=== PATIENT | female | born 1950 | race Caucasian/White ===

== ENCOUNTER 2020-03-28 13:35 | Outpatient (CLI) | payer MEDICARE, OTHER, SELFPAY ==
--- NOTE | 2020-03-28 13:52 | ECHO_ITS ---
Patient Info Name: Mariana Mathew Age: 69 years : 1950 Gender: Female Ht: 64 in Wt: 232 lbs BSA: 2.23 m2 HR: 71 bpm BP: 143 / 70 mmHg Technical Quality: Good Exam Date: 03/28/2020 2:10 PM Exam Location: [facility] Patient Status: Outpatient Admit Date: 03/28/2020 Staff Ordering Physician: Brandyn Peralta DO Data Keyer: Patricia Olivares RDCS Attending Provider: Brandyn Peralta DO Referring Physician: Kathryn HURD; Exam Type: CA echo doppler color flow Study Info Indications - murmur Complete two-dimensional, color flow and Doppler transthoracic echocardiogram is performed. Summary 1. Left ventricular chamber dimension is normal. 2. Left ventricular systolic function is normal, estimated at 60-65%. 3. The left ventricular diastolic function is grade I diastolic dysfunction. 4. E/e' 9 is minimally elevated. 5. Left atrial chamber dimension is mildly enlarged. 6. There is mild aortic valve sclerosis. 7. No pulmonary hypertension, estimated pulmonary arterial systolic pressure is 29 mmHg. Left Ventricle E/e' 9 is minimally elevated. Left ventricular chamber dimension is normal. Left ventricular systolic function is normal, estimated at 60-65%. The left ventricular diastolic function is grade I diastolic dysfunction. Right Ventricle Right ventricular chamber dimension is normal. Right ventricular systolic function is normal. Left Atria Left atrial chamber dimension is mildly enlarged. Right Atria Right atrial chamber dimension is normal. Aortic Valve The aortic valve is trileaflet. There is mild aortic valve sclerosis. There is no aortic valve stenosis. There is no aortic valve regurgitation. Pulmonic Valve There is no pulmonic regurgitation. Mitral Valve There is no mitral valve stenosis. There is no mitral valve regurgitation. Tricuspid Valve There is no tricuspid valve regurgitation. No pulmonary hypertension, estimated pulmonary arterial systolic pressure is 29 mmHg. Pericardium/Pleural There is no pericardial effusion. Inferior Vena Cava Normal inferior vena cava with >50% collapse upon inspiration consistent with normal right atrial pressure, 5 mmHg. Aorta The aortic root size at the sinus of Valsalva is normal. Left Ventricular Outflow Tract Name Value Normal LVOT 2D LVOT Diameter 2.0 cm LVOT Doppler LVOT Peak Gradient 5 mmHg LVOT Mean Gradient 3 mmHg LVOT VTI 25 cm LVOT VTI/AV VTI Ratio 0.8 LVOT Stroke Volume 78 ml LVOT CO 15.0 l/min LVOT CI 6.7 l/min/m2 Pulmonic Valve Name Value Normal PV Doppler PV Peak Gradient 4 mmHg Mitral Valve
== END 2020-03-28 13:36 | disposition home or self-care (01) ==
LOC: ANHCARD 13:37
PROVIDERS: PCP Internal Medicine; Visit Provider Internal Medicine
DX: R01.1 Cardiac murmur, unspecified (principal)
CPT/HCPCS: 93306

== ENCOUNTER 2021-02-12 10:30 | Outpatient (CLI) | payer MEDICARE, OTHER, SELFPAY ==
--- NOTE | ~2021-02-12 | XR_ITS ---
EXAMINATION: XR thoracic spine 2V DATE: 02/12/2021 10:57 INDICATION: Back pain TECHNIQUE: Two views of the thoracic spine are obtained. COMPARISON: 06/17/2016 FINDINGS: There is no fracture, dislocation, or subluxation. There is mild loss of intervertebral dis c space height at multiple levels in the midthoracic spine. The vertebral body heights are maintained . Small degenerative osteophytes project from the anterior endplates of multiple vertebral bodies. Ca lcified lung nodules and right hilar and subcarinal lymph nodes are consistent with old granulomatous disease. IMPRESSION: 1. Mild thoracic spondylosis without acute findings. Reviewed, dictated and finalized at location A.
--- NOTE | ~2021-02-12 | XR_ITS ---
EXAMINATION: XR lumbar spine 2-3V DATE: 02/12/2021 10:57 INDICATION: Low back pain TECHNIQUE: Anteroposterior and lateral views of the lumbar spine, and cone-down lateral view of the l umbosacral junction were obtained. COMPARISON: None. FINDINGS: There is no fracture, dislocation, or subluxation. The vertebral body heights, alignment, a nd intervertebral disc spaces are normal. Small degenerative osteophytes project from the anterior en dplates of multiple vertebral bodies. There is moderate to severe facet osteoarthritis of the lower l umbar spine. The bowel gas pattern is normal. IMPRESSION: 1. Mild lumbar spondylosis without acute findings. Reviewed, dictated and finalized at location A.
== END 2021-02-12 10:31 | disposition home or self-care (01) ==
LOC: ANHIMG 10:33
PROVIDERS: PCP Internal Medicine; Visit Provider Internal Medicine
DX: M47.815 Spondylosis without myelopathy or radiculopathy, thoracolumbar region (principal)
CPT/HCPCS: 72070; 72100

== ENCOUNTER 2021-06-04 09:03 | Outpatient (CLI) | payer MEDICARE, OTHER, SELFPAY ==
--- NOTE | ~2021-06-04 | US_ITS ---
EXAMINATION: US art doppler w patience RENE EXAM DATE: 06/04/2021 09:52 INDICATION: I73.9 - Peripheral vascular disease, unspecified. TECHNIQUE: Segmental pressures and plethysmographic and Doppler waveforms of the brachial and lower e xtremity arteries were obtained. There is no prior study for comparison. FINDINGS: Right and left brachial artery pressures of 141 mm Hg and 145 mm Hg, respectively, are concordant (no rmal difference <= 30 mmHg). RIGHT LEG: The ankle-brachial index (RIKI) is 1.00 (normal >= 0.9-1). The great toe-brachial index (TBI) is 0.70 (normal >= 0.65). The lower extremity ratios, segmental pressure gradients as follows; Proximal superficial femoral artery:- Could not obtain ( mmHg). Distal superficial femoral artery: ----- Could not obtain ( mmHg). Popliteal: 1.26 (183 mmHg). Dorsalis pedis: 0.96 (139 mmHg). Posterior tibial: 1.00 (145 mmHg). (Normal gradients <= 20-30 mmHg between adjacent levels on the same leg or the same levels on the two legs). Arterial waveforms are biphasic. LEFT LEG: The ankle-brachial index (RIKI) is 1.15 (normal >= 0.9-1). The great toe-brachial index (TBI) is 0.63 (normal >= 0.65). The lower extremity ratios, segmental pressure gradients as follows; Proximal superficial femoral artery:- Could not obtain ( mmHg). Distal superficial femoral artery: ----- Could not obtain ( mmHg). Popliteal: 1.13 (188 mmHg). Dorsalis pedis: 1.15 (167 mmHg). Posterior tibial: 1.07 (155 mmHg). (Normal gradients <= 20-30 mmHg between adjacent levels on the same leg or the same levels on the two legs). Arterial waveforms are biphasic. IMPRESSION: 1. Right ankle-brachial index 1.00, normal. 2. Left ankle-brachial index 1.15, normal. 3. Segmental pressures as above. Reviewed, dictated and finalized at location A.
== END 2021-06-04 09:04 | disposition home or self-care (01) ==
PROVIDERS: PCP Internal Medicine; Visit Provider Internal Medicine
DX: I73.9 Peripheral vascular disease, unspecified (principal)
CPT/HCPCS: 93923

== ENCOUNTER 2021-09-04 02:11 | Day surgery (SDC) | payer MEDICARE, OTHER, SELFPAY ==
[2021-08-20 11:00] VITALS: BMI 47.2
[2021-09-04 07:39] LABS: Glucose Point of Care 118 mg/dl (65-105)
[2021-09-04 07:41] VITALS: BP 158/48; PULSE 81; RESP 18; TEMP 36.2; O2SAT 97
[2021-09-04] MEDS: LACTATED RINGERS 1,000 ML 150 ML IV CONT (07:44)
--- NOTE | 2021-09-04 08:13 | WPDANESEPPF ---
Anes - Initial Pre Proc Eval Procedure: Operation Date: 09/04/21 08:30 Proposed Procedures p Screening Colonoscopy - Slim Sims MD Date/Time: 09/04/21 08:13 Surgeon: Slim Sims MD Pre Op Diagnosis: hx of colon polyps Patient Data Age: 70 Gender: F Height: 1.63 m Weight: 123.4 kg Last Vital Signs Temp 36.2 C L 09/04/21 07:41 Pulse 81 09/04/21 07:41 Resp 18 09/04/21 07:41 BP 158/48 H 09/04/21 07:41 Pulse Ox 97 09/04/21 07:41 Allergies Allergy/AdvReac Type Severity Reaction Status Date / Time lisinopril AdvReac Mild Cough Verified 09/04/21 07:40 Home Medications Medication Instructions Recorded Confirmed Type blood sugar diagnostic #10 each 10/19/19 09/04/21 History folic acid 1 mg tablet 3 mg PO DAILY tablet 10/23/19 09/04/21 History spironolactone 25 mg tablet 25 mg PO BID 10/23/19 09/04/21 History irbesartan 150 mg tablet 150 mg PO DAILY #90 tablet 10/01/20 09/04/21 Rx cholecalciferol (vitamin D3) 25 25 mcg PO DAILY 02/12/21 09/04/21 History mcg (1,000 unit) capsule hydroxychloroquine 200 mg tablet 200 mg PO BID 02/12/21 09/04/21 History prednisone 10 mg tablet 10 mg PO DAILY 02/12/21 09/04/21 History ursodiol 500 mg tablet 1,500 mg PO BID 02/12/21 09/04/21 History vitamin B complex 1 tablet PO DAILY 02/12/21 09/04/21 History albuterol sulfate 90 mcg/actuation 2 puff INHALATION Q4-6H PRN #8.5 g 05/20/21 09/04/21 Rx aerosol inhaler fluticasone 250 mcg-salmeterol 50 1 inh INHALATION BID #60 ea 05/20/21 09/04/21 Rx mcg/dose blistr powdr for inhalation fluticasone propionate 50 2 spray NASAL DAILY #16 g 05/20/21 09/04/21 Rx mcg/actuation nasal spray,suspension ascorbate calcium (vitamin C) 500 500 mg PO DAILY 05/30/21 09/04/21 History mg tablet furosemide 20 mg tablet 60 mg PO QAM #90 tablet 07/04/21 09/04/21 Rx insulin glargine [Lantus Solostar 60 unit SUBCUT DAILY 08/20/21 09/04/21 History U-100 Insulin] insulin lispro [Humalog KwikPen 25 sliding scale dose SUBCUT AC 08/20/21 09/04/21 History Insulin] simvastatin 20 mg tablet 20 mg PO DAILY #90 tablet 08/20/21 09/04/21 Rx Laboratory Tests 09/04/21 07:36 POC Capillary Glucose 118 mg/dl H mg/dl (65-105) Patient hx anesthesia problems: none Family hx anesthesia problems: none Results Review: All pre-operative results and documents have been reviewed as part of the pre-operative evaluation. [facility] Surgical History Surgical History History of liver biopsy Family History Family History Father Family history of Alzheimer's disease, Onset Age: 66 Patient's father is Mother Family history of malignant neoplasm of breast in first degree relative, Onset Age: 66 Diabetes mellitus, Onset Age: 66 Grandparent Diabetes mellitus Social History Social History Smoking status: Never smoker Second hand tobacco smoke exposure: No Alcohol intake: former Alcohol use details: drank rarely in the past Substance use: never Substance use type: does not use Living arrangements: alone Additional living arrangements comments: 5 children who live close by Spiritual care concerns: No Anes - Eval Final PreProcedure Day of Procedure 09/04/21 08:13 Patient weight: morbidly obese Heart: regular rate and rhythm Lungs: clear to auscultation Airway: Mallampati scale class III Neurological: alert and oriented Last oral intake: >/= 8 hours ASA classification: IV Emergent: no Anesthetic plan: proceed Anesthesia type and monitoring: general GIVS and standard monitoring Results Review: All pre-operative results and documents have been reviewed as part of the pre-operative evaluation. Informed Consent: The patient's anesthetic plan and its attendant risks and benefits were discussed
--- NOTE | 2021-09-04 08:17 | WPDGICN ---
Assessment and Plan Assessment and plan (1) History of colon polyps: Code(s): Z86.010 - Personal history of colonic polyps Status: Acute Assessment and Plan: Patient is a prior history of colon polyps. Most recent colonoscopy 2016. Plan is for surveillance colonoscopy at this time. (2) Cirrhosis: Code(s): K74.60 - Unspecified cirrhosis of liver Status: Acute Assessment and Plan: Patient with cirrhosis currently followed at [facility] by Dr. Zuñiga. Continued supportive care. She appears to have had ascites and anasarca. It appears as though this is on the basis of sarcoidosis. (3) Sarcoidosis: Code(s): D86.9 - Sarcoidosis, unspecified Status: Acute Assessment and Plan: Patient followed at [facility] for sarcoidosis. Currently on low-dose prednisone. She will follow-up with her established physicians at [facility]. (4) Type 2 diabetes mellitus without complications: Code(s): E11.9 - Type 2 diabetes mellitus without complications Status: Acute GI Consult Note Consult date/time: 09/04/21 08:17 HPI: Mariana Mathew is a 70 year old female Presents for screening colonoscopy. Patient has a prior history of colon polyps. Most recent exam by Dr. Slim Amador in 2016. Patient reports her current weight appetite and bowel movements are normal. She denies any blood in her stools. She presents today for colonoscopy. Recent past medical history is significant she was diagnosed with cirrhosis of the liver. Cash to have systemic sarcoidosis. This was identified because of hypercalcemia. Currently followed by Dr. Zuñiga at [facility]. She currently is on a low dose of prednisone daily. Family history is noncontributory. Review of Systems Review of Systems: All systems reviewed & are unremarkable except as noted in HPI and below PMFSH Surgical History Surgical History History of liver biopsy Family History Family History Father Family history of Alzheimer's disease, Onset Age: 66 Patient's father is Mother Family history of malignant neoplasm of breast in first degree relative, Onset Age: 66 Diabetes mellitus, Onset Age: 66 Grandparent Diabetes mellitus Social History Social History Smoking status: Never smoker Second hand tobacco smoke exposure: No Alcohol intake: former Alcohol use details: drank rarely in the past Substance use: never Substance use type: does not use Living arrangements: alone Additional living arrangements comments: 5 children who live close by Spiritual care concerns: No Meds Home Medications and Allergies Home Medications Medication Instructions Recorded Confirmed Type blood sugar diagnostic #10 each 10/19/19 09/04/21 History folic acid 1 mg tablet 3 mg PO DAILY tablet 10/23/19 09/04/21 History spironolactone 25 mg tablet 25 mg PO BID 10/23/19 09/04/21 History irbesartan 150 mg tablet 150 mg PO DAILY #90 tablet 10/01/20 09/04/21 Rx cholecalciferol (vitamin D3) 25 25 mcg PO DAILY 02/12/21 09/04/21 History mcg (1,000 unit) capsule hydroxychloroquine 200 mg tablet 200 mg PO BID 02/12/21 09/04/21 History prednisone 10 mg tablet 10 mg PO DAILY 02/12/21 09/04/21 History ursodiol 500 mg tablet 1,500 mg PO BID 02/12/21 09/04/21 History vitamin B complex 1 tablet PO DAILY 02/12/21 09/04/21 History albuterol sulfate 90 mcg/actuation 2 puff INHALATION Q4-6H PRN #8.5 g 05/20/21 09/04/21 Rx aerosol inhaler fluticasone 250 mcg-salmeterol 50 1 inh INHALATION BID #60 ea 05/20/21 09/04/21 Rx mcg/dose blistr powdr for inhalation fluticasone propionate 50 2 spray NASAL DAILY #16 g 05/20/21 09/04/21 Rx mcg/actuation nasal spray,suspension ascorbate calcium (vitamin C) 500 500 mg PO DAILY 05/30/21 09/04/21 Hi
[2021-09-04 08:52] VITALS: BP 96/60; PULSE 74; RESP 18; O2SAT 96
[2021-09-04 09:02] VITALS: BP 136/55; PULSE 72; RESP 16; O2SAT 96
[2021-09-04 09:12] VITALS: BP 138/55; PULSE 74; RESP 18; O2SAT 98
[2021-09-04 09:27] LABS: Glucose Point of Care 103 mg/dl (65-105)
== END 2021-09-04 09:20 | disposition home or self-care (01) ==
PROVIDERS: PCP Internal Medicine; Visit Provider Internal Medicine Gastroenterology
PROC: 0DJD8ZZ Inspection of Lower Intestinal Tract, Via Natural or Artificial Opening Endoscopic (ICD-10-PCS; CPT 45378; principal; 2021-09-04 08:30)
DX: Z12.11 Encounter for screening for malignant neoplasm of colon (principal); D12.5 Benign neoplasm of sigmoid colon; K63.5 Polyp of colon; K64.8 Other hemorrhoids; K74.60 Unspecified cirrhosis of liver; D86.9 Sarcoidosis, unspecified; E11.9 Type 2 diabetes mellitus without complications; Z79.51 Long term (current) use of inhaled steroids; Z79.4 Long term (current) use of insulin; E66.01 Morbid (severe) obesity due to excess calories; Z68.42 Body mass index [BMI] 45.0-49.9, adult
CPT/HCPCS: 45385; 82948; 88305; J2704; J7120

== ENCOUNTER → 2021-11-17 01:21 | Outpatient (CLI) | payer MEDICARE, OTHER, SELFPAY ==
[2021-11-17 21:23] LABS: SARS-CoV-2 RNA PCR Negative
== END ==
PROVIDERS: PCP Internal Medicine; Visit Provider Physician Assistant
DX: R68.89 Other general symptoms and signs (principal); Z20.822 Contact with and (suspected) exposure to COVID-19
CPT/HCPCS: C9803; U0003; U0005